=== PATIENT | male | born 1950 | race Caucasian/White ===

== ENCOUNTER 2023-10-31 13:51 | Inpatient (IN) | payer MEDICARE, MEDICAID ==
[~2023-10-31] VITALS: Ht 170.2 cm; Wt 88.0 kg
[2023-10-31 14:53] LABS: BASOPHILS # (AUTO) 0.1 K/UL (0.0-0.2); BASOPHILS % (AUTO) 1.6 % (0.0-2.0); EOSINOPHILS # (AUTO) 0.1 K/uL (0.0-0.7); EOSINOPHILS % (AUTO) 1.2 % (0.0-7.0); HEMATOCRIT 38.3 % (36.7-47.1); HEMOGLOBIN 12.4 g/dL (12.5-16.3); LYMPHOCYTES # (AUTO) 0.3 K/uL (0.8-4.8); LYMPHOCYTES % (AUTO) 5.6 % (20.5-51.5); MEAN CORPUSCULAR HEMOGLOBIN 25.8 uug (23.8-33.4); MEAN CORPUSCULAR HGB CONC 32 g/dL (32.5-36.3); MEAN CORPUSCULAR VOLUME 79.4 fL (73.0-96.2); MONOCYTES # (AUTO) 0.7 K/uL (0.1-1.30); MONOCYTES % (AUTO) 12.2 % (0.0-11.0); NEUTROPHILS # (AUTO) 4.5 K/uL (1.8-8.9); NEUTROPHILS % (AUTO) 79.4 % (38.5-71.5); PLATELET COUNT (AUTO) 159 K/uL (152-348); RED BLOOD CELL COUNT(AUTO) 4.82 MIL/uL (4.06-5.63); RED CELL DISTRIBUTION WIDTH 18.8 % (12.1-16.2); WHITE BLOOD COUNT (AUTO) 5.6 K/uL (3.6-10.2)
[2023-10-31 15:04] LABS: DIFFERENTIAL COMMENT 1
[2023-10-31 15:28] LABS: CALCIUM 8.7 mg/dL (8.5-10.1); CARBON DIOXIDE 24 mmol/L (21-32); CHLORIDE 100 mmol/L (98-107); CREATININE 1.1 mg/dL (0.6-1.3); GLUCOSE 187 mg/dL (74-106); POTASSIUM 3.6 mmol/L (3.5-5.1); SODIUM SERUM 138 mmol/L (136-145); UREA NITROGEN, BLOOD 20 mg/dL (7-18)
[2023-10-31 15:40] LABS: LACTIC ACID 2.3 mmol/L (0.4-2.0)
[2023-10-31] MEDS ORDERED: IV NS 1000 ML 1,000 ML IV ONE (16:15)
[2023-10-31] MEDS ORDERED: SEMA1PEN SQ (17:13)
[2023-10-31] MEDS ORDERED: ECON15CR4 TP (17:13)
[2023-10-31] MEDS ORDERED: IRBE300T19 PO (17:13)
[2023-10-31] MEDS ORDERED: CALC60OI4 TP (17:13)
[2023-10-31] MEDS ORDERED: DARI15TA16 PO (17:13)
[2023-10-31] MEDS ORDERED: IBUP-1957 PO (17:13)
[2023-10-31] MEDS ORDERED: ASPI81TA31 PO (17:13)
[2023-10-31] MEDS ORDERED: ATOR40TA PO (17:13)
[2023-10-31] MEDS ORDERED: TADA5TAB2 PO (17:13)
[2023-10-31] MEDS ORDERED: OMEP1CAP25 PO (17:13)
[2023-10-31] MEDS ORDERED: HYDR-3980 PO (17:13)
[2023-10-31] MEDS ORDERED: REPA1TAB7 PO (17:13)
[2023-10-31] MEDS ORDERED: OMEG1CAP40 PO (17:13)
[2023-10-31] MEDS ORDERED: EMPA1TAB7 PO (17:13)
[2023-10-31] MEDS ORDERED: CARV25TA2 PO (17:13)
[2023-10-31] MEDS ORDERED: MAGN400T26 PO (17:13)
[2023-10-31] MEDS ORDERED: TAMS-3 PO (17:13)
[2023-10-31 17:27] LABS: BILIRUBIN,DIRECT 0.1 mg/dL (0.0-0.2); BILIRUBIN,TOTAL 0.5 mg/dL (0.2-1.0)
[2023-10-31] MEDS ORDERED: IV NS 1000 ML 1,000 ML IV PRN (18:15)
[2023-10-31] MEDS ORDERED: ONDANSETRON 4 MG/2 ML VIAL IV PRN (18:15)
[2023-10-31] MEDS: ENOXAPARIN SODIUM 40 MG/0.4 ML DISP.SYRIN SQ SCH (19:09)
[2023-10-31 21:05] VITALS: BP 152/85; TEMP 98.7; O2SAT 96
[2023-11-01 00:22] VITALS: BP 133/79; TEMP 98.6; O2SAT 95
[2023-11-01 04:25] VITALS: BP 125/53; TEMP 98.6; O2SAT 95
[2023-11-01 06:38] LABS: BASOPHILS % (AUTO) 0.5 % (0.0-2.0); HEMATOCRIT 35.5 % (36.7-47.1); HEMOGLOBIN 11.6 g/dL (12.5-16.3); LYMPHOCYTES # (AUTO) 0.5 K/uL (0.8-4.8); LYMPHOCYTES % (AUTO) 12.9 % (20.5-51.5); MEAN CORPUSCULAR HEMOGLOBIN 25.8 uug (23.8-33.4); MEAN CORPUSCULAR HGB CONC 33 g/dL (32.5-36.3); MEAN CORPUSCULAR VOLUME 79.1 fL (73.0-96.2); MONOCYTES # (AUTO) 0.6 K/uL (0.1-1.30); MONOCYTES % (AUTO) 13.3 % (0.0-11.0); NEUTROPHILS % (AUTO) 72.3 % (38.5-71.5); PLATELET COUNT (AUTO) 141 K/uL (152-348); RED BLOOD CELL COUNT(AUTO) 4.49 MIL/uL (4.06-5.63); RED CELL DISTRIBUTION WIDTH 18.4 % (12.1-16.2); WHITE BLOOD COUNT (AUTO) 4.2 K/uL (3.6-10.2)
[2023-11-01 07:03] LABS: DIFFERENTIAL COMMENT 1
[2023-11-01 07:28] LABS: CARBON DIOXIDE 26 mmol/L (21-32); CHLORIDE 104 mmol/L (98-107); GLUCOSE 126 mg/dL (74-106); PHOSPHOROUS 3.1 mg/dL (2.5-4.9); POTASSIUM 3.6 mmol/L (3.5-5.1); SODIUM SERUM 139 mmol/L (136-145); UREA NITROGEN, BLOOD 15 mg/dL (7-18)
[2023-11-01 11:45] VITALS: BP 126/48; TEMP 98.4; O2SAT 94
[2023-11-01 16:46] VITALS: BP 134/80; TEMP 99; O2SAT 97
[2023-11-01 17:00] VITALS: BP 99/62; TEMP 98; O2SAT 94
[2023-11-01] MEDS ORDERED: DEXTROSE 50% 50 ML DISP.SYRIN IV PRN (17:15)
[2023-11-01 17:50] VITALS: O2SAT 97
[2023-11-01] MEDS: CARVEDILOL 25 MG TABLET PO SCH (20:11)
[2023-11-01] MEDS: ENOXAPARIN SODIUM 40 MG/0.4 ML DISP.SYRIN SQ SCH (20:24)
[2023-11-01] MEDS: ATORVASTATIN 40 MG TABLET PO SCH (20:25)
[2023-11-01] MEDS: TAMSULOSIN HCL 0.4 MG CAP.SR.24H PO SCH (20:25)
[2023-11-01] MEDS: BLOOD SUGAR DIAGNOSTIC 1 EACH STRIP VI SCH (21:57)
[2023-11-01] MEDS: FLUTICASONE PROP NASAL SPRAY 16 GM BOTTLE NS SCH (22:15)
[2023-11-01] MEDS: ACETAMINOPHEN 325 MG TABLET PO PRN (23:07)
[2023-11-02] VITALS: BP 105/64; TEMP 97.9; O2SAT 94
[2023-11-02 04:20] VITALS: BP 116/70; TEMP 98.1; O2SAT 95
[2023-11-02] MEDS: BLOOD SUGAR DIAGNOSTIC 1 EACH STRIP VI SCH ×5 (06:50→21:20)
[2023-11-02 08:07] LABS: BASOPHILS % (AUTO) 0.7 % (0.0-2.0); EOSINOPHILS # (AUTO) 0.1 K/uL (0.0-0.7); EOSINOPHILS % (AUTO) 2.7 % (0.0-7.0); HEMATOCRIT 36.2 % (36.7-47.1); HEMOGLOBIN 11.7 g/dL (12.5-16.3); LYMPHOCYTES # (AUTO) 0.6 K/uL (0.8-4.8); LYMPHOCYTES % (AUTO) 18.6 % (20.5-51.5); MEAN CORPUSCULAR HEMOGLOBIN 25.7 uug (23.8-33.4); MEAN CORPUSCULAR HGB CONC 32 g/dL (32.5-36.3); MEAN CORPUSCULAR VOLUME 79.4 fL (73.0-96.2); MONOCYTES # (AUTO) 0.6 K/uL (0.1-1.30); MONOCYTES % (AUTO) 16.8 % (0.0-11.0); NEUTROPHILS % (AUTO) 61.2 % (38.5-71.5); PLATELET COUNT (AUTO) 136 K/uL (152-348); RED BLOOD CELL COUNT(AUTO) 4.56 MIL/uL (4.06-5.63); RED CELL DISTRIBUTION WIDTH 18.3 % (12.1-16.2); WHITE BLOOD COUNT (AUTO) 3.4 K/uL (3.6-10.2)
[2023-11-02 08:30] LABS: DIFFERENTIAL COMMENT 1
[2023-11-02 08:42] LABS: CALCIUM 8.3 mg/dL (8.5-10.1); CARBON DIOXIDE 25 mmol/L (21-32); CHLORIDE 102 mmol/L (98-107); CREATININE 0.9 mg/dL (0.6-1.3); GLUCOSE 163 mg/dL (74-106); MAGNESIUM 2.2 mg/dL (1.8-2.4); PHOSPHOROUS 3.4 mg/dL (2.5-4.9); POTASSIUM 3.7 mmol/L (3.5-5.1); SODIUM SERUM 136 mmol/L (136-145); UREA NITROGEN, BLOOD 17 mg/dL (7-18)
[2023-11-02] MEDS: ASPIRIN 81 MG TAB.CHEW PO SCH (09:34)
[2023-11-02] MEDS: FLUTICASONE PROP NASAL SPRAY 16 GM BOTTLE NS SCH (09:34)
[2023-11-02] MEDS: LOSARTAN POTASSIUM 50 MG TABLET PO SCH ×2 (09:35→21:14)
[2023-11-02] MEDS: CARVEDILOL 25 MG TABLET PO SCH ×2 (09:38→17:10)
[2023-11-02] MEDS: INSULIN REGULAR, HUMAN 300 UNIT/3 ML VIAL SQ PRN ×3 (09:40→21:42)
[2023-11-02 12:00] VITALS: BP 106/66; TEMP 98.9; O2SAT 97
[2023-11-02 13:13] LABS: PLATELET ESTIMATE DECREASED
[2023-11-02 13:17] LABS: EOSINOPHILS % (MANUAL) 3 % (0-8); NEUTROPHILS % (MANUAL) 64 % (42-75)
[2023-11-02 13:19] LABS: LYMPHOCYTES % (MANUAL) 18 % (20-40); MONOCYTES % (MANUAL) 15 % (2-10)
[2023-11-02 16:50] VITALS: O2SAT 97
[2023-11-02] MEDS: TAMSULOSIN HCL 0.4 MG CAP.SR.24H PO SCH (20:49)
[2023-11-02] MEDS: ATORVASTATIN 40 MG TABLET PO SCH (20:49)
[2023-11-02] MEDS: ENOXAPARIN SODIUM 40 MG/0.4 ML DISP.SYRIN SQ SCH (20:52)
[2023-11-02 20:55] VITALS: BP 128/62; TEMP 98.5; O2SAT 95
[2023-11-02] MEDS: ACETAMINOPHEN 325 MG TABLET PO PRN (23:41)
[2023-11-03 04:10] VITALS: BP 122/58; TEMP 98.5; O2SAT 94
[2023-11-03] MEDS: BLOOD SUGAR DIAGNOSTIC 1 EACH STRIP VI SCH ×4 (06:32→21:14)
[2023-11-03 06:56] LABS: BASOPHILS % (AUTO) 0.6 % (0.0-2.0); EOSINOPHILS # (AUTO) 0.1 K/uL (0.0-0.7); EOSINOPHILS % (AUTO) 2.9 % (0.0-7.0); HEMATOCRIT 34.6 % (36.7-47.1); HEMOGLOBIN 11.6 g/dL (12.5-16.3); LYMPHOCYTES # (AUTO) 0.8 K/uL (0.8-4.8); LYMPHOCYTES % (AUTO) 26.3 % (20.5-51.5); MEAN CORPUSCULAR HGB CONC 33 g/dL (32.5-36.3); MEAN CORPUSCULAR VOLUME 78.1 fL (73.0-96.2); MONOCYTES # (AUTO) 0.6 K/uL (0.1-1.30); MONOCYTES % (AUTO) 18.4 % (0.0-11.0); NEUTROPHILS # (AUTO) 1.6 K/uL (1.8-8.9); NEUTROPHILS % (AUTO) 51.8 % (38.5-71.5); PLATELET COUNT (AUTO) 140 K/uL (152-348); RED BLOOD CELL COUNT(AUTO) 4.44 MIL/uL (4.06-5.63); RED CELL DISTRIBUTION WIDTH 18.1 % (12.1-16.2); WHITE BLOOD COUNT (AUTO) 3.1 K/uL (3.6-10.2)
[2023-11-03 07:16] LABS: DIFFERENTIAL COMMENT 1
[2023-11-03 07:31] LABS: CALCIUM 8.3 mg/dL (8.5-10.1); CARBON DIOXIDE 25 mmol/L (21-32); CHLORIDE 105 mmol/L (98-107); CREATININE 0.9 mg/dL (0.6-1.3); GLUCOSE 170 mg/dL (74-106); MAGNESIUM 1.9 mg/dL (1.8-2.4); PHOSPHOROUS 3.4 mg/dL (2.5-4.9); POTASSIUM 3.7 mmol/L (3.5-5.1); SODIUM SERUM 139 mmol/L (136-145); UREA NITROGEN, BLOOD 18 mg/dL (7-18)
[2023-11-03 08:31] LABS: LYMPHOCYTES % (MANUAL) 0 % (20-40); NEUTROPHILS % (MANUAL) 0 % (42-75)
[2023-11-03] MEDS: INSULIN REGULAR, HUMAN 300 UNIT/3 ML VIAL SQ PRN ×4 (08:41→21:20)
[2023-11-03] MEDS: LOSARTAN POTASSIUM 50 MG TABLET PO SCH ×2 (09:00→21:17)
[2023-11-03] MEDS: ASPIRIN 81 MG TAB.CHEW PO SCH (09:59)
[2023-11-03] MEDS: FLUTICASONE PROP NASAL SPRAY 16 GM BOTTLE NS SCH (09:59)
[2023-11-03] MEDS: CARVEDILOL 25 MG TABLET PO SCH ×2 (10:01→17:26)
[2023-11-03 12:00] VITALS: BP 133/62; TEMP 98; O2SAT 95
[2023-11-03 16:00] VITALS: BP 113/69; TEMP 97.7; O2SAT 97
[2023-11-03 17:09] VITALS: BP 133/62; TEMP 98; O2SAT 94
[2023-11-03 20:00] VITALS: BP 112/63; TEMP 97.5; O2SAT 96
[2023-11-03] MEDS: ATORVASTATIN 40 MG TABLET PO SCH (21:16)
[2023-11-03] MEDS: TAMSULOSIN HCL 0.4 MG CAP.SR.24H PO SCH (21:17)
[2023-11-03] MEDS: ENOXAPARIN SODIUM 40 MG/0.4 ML DISP.SYRIN SQ SCH (21:19)
[2023-11-04 04:00] VITALS: BP 134/74; TEMP 97.9; O2SAT 96
[2023-11-04] MEDS: BLOOD SUGAR DIAGNOSTIC 1 EACH STRIP VI SCH ×3 (08:00→16:30)
[2023-11-04] MEDS: ASPIRIN 81 MG TAB.CHEW PO SCH (09:29)
[2023-11-04] MEDS: LOSARTAN POTASSIUM 50 MG TABLET PO SCH (09:38)
[2023-11-04] MEDS: CARVEDILOL 25 MG TABLET PO SCH (09:38)
[2023-11-04] MEDS: FLUTICASONE PROP NASAL SPRAY 16 GM BOTTLE NS SCH (09:41)
[2023-11-04 12:12] VITALS: BP 114/73; TEMP 97.2; O2SAT 94
[2023-11-04] MEDS: INSULIN REGULAR, HUMAN 300 UNIT/3 ML VIAL SQ PRN (12:53)
== END 2023-11-04 17:05 | disposition home health service (06) | DRG 640 ==
LOC: ER 13:51 → TELE3 20:19 → MEDSURG3 11-03 10:35
PROVIDERS: ADMIT Nurse Practitioner Acute Care; ATTEND Nurse Practitioner Acute Care
DX: R62.7 Adult failure to thrive (principal); U07.1 COVID-19; N17.9 Acute kidney failure, unspecified; E87.20 Acidosis, unspecified; E86.0 Dehydration; Z68.30 Body mass index [BMI] 30.0-30.9, adult; E66.01 Morbid (severe) obesity due to excess calories; R29.6 Repeated falls; D64.9 Anemia, unspecified; G93.89 Other specified disorders of brain; N40.0 Benign prostatic hyperplasia without lower urinary tract symptoms; E11.9 Type 2 diabetes mellitus without complications; Z95.2 Presence of prosthetic heart valve; R00.0 Tachycardia, unspecified; Z86.73 Personal history of transient ischemic attack (TIA), and cerebral infarction without residual deficits; I10 Essential (primary) hypertension; Z79.82 Long term (current) use of aspirin; Z79.899 Other long term (current) drug therapy; Z79.84 Long term (current) use of oral hypoglycemic drugs
CPT/HCPCS: 36415; 70030-TC; 70450; 71045; 83605; 83735; 84100; 84484; 85025; 85730; 86140; 93005; A4606; A4663; G0378; J1650; J1815; J3535; J7040